=== PATIENT | female | born 1970 | race Caucasian/White ===

== ENCOUNTER 2024-11-02 10:25 | Emergency (ER) | payer MEDICARE, OTHER ==
[~2024-11-02] VITALS: Ht 167.6 cm; Wt 74.8 kg
[2024-11-02] MEDS ORDERED: LORAZEPAM 2 MG/1 ML VIAL ONE (11:04)
[2024-11-02] MEDS: LORAZEPAM 2 MG/1 ML VIAL IV ONE (11:09)
[2024-11-02 12:08] VITALS: BP 111/75; TEMP 97.8; O2SAT 98
== END 2024-11-02 12:10 | disposition home or self-care (01) ==
LOC: ER 10:25
DX: M54.50 Low back pain, unspecified (principal); F41.9 Anxiety disorder, unspecified
CPT/HCPCS: 99283; 96374; J2060; A4606; A4663